=== PATIENT | female | born 1990 | race Caucasian/White ===

== ENCOUNTER 2019-07-01 16:41 | Inpatient (IN) | payer SELFPAY ==
[2019-07-01 17:07] LABS: #Basophils 0.1 thou/uL (0.0-0.2); #Eosinphils 0.3 thou/uL (0.0-0.7); #Lymphocytes 5.3 thou/uL (1.20-3.40); #Monocytes 1.3 thou/uL (0.11-0.59); #Neutrophils 9.2 thou/uL (1.40-6.50); %Basophils 0.8 % (0.0-1.0); %Eosinophils 1.7 % (0.0-10.0); %Lymphocytes 32.6 % (21.0-51.0); %Monocytes 7.9 % (0.0-10.0); Hemoglobin 13.3 g/dL (12.0-16.0); Mean Corpuscular Hemoglobin 29.4 pg (27.0-31.0); Mean Corpuscular Volume 91.6 fL (78.0-98.0); Mean Platelet Volume 6.9 fL (7.4-10.4); Platelet Count 315 thou/uL (130-400); RBC Distribution Width 12.3 % (11.5-14.5); Red Blood Cell (RBC) Count 4.53 mill/uL (4.20-5.40); White Blood Cell (WBC) Count 16.2 thou/uL (4.8-10.8)
[2019-07-01] MEDS ORDERED: Norepinephrine 8 MG/0.9% NS 250 ML ONE (17:20)
[2019-07-01 17:27] LABS: Prothrombin Time 13.3 SEC (12.0-14.7)
[2019-07-01 17:28] LABS: ALT (SGPT) Less than 7 U/L (8-55); AST (SGOT) 18 U/L (5-34); Albumin 3.8 g/dL (3.5-5.0); Alkaline Phosphatase 76 U/L (40-110); Anion Gap 21 mmol/L (10-20); BUN (Urea Nitrogen) 11 mg/dL (7.0-18.7); Bilirubin, Total 0.4 mg/dL (0.2-1.2); Calc. Creatinine Clearance 0 mL/min (70-130); Calcium 8.7 mg/dL (7.8-10.44); Carbon Dioxide 16 mmol/L (22-29); Chloride 104 mmol/L (98-107); Estimated GFR-MDRD 49; Globulin 3.3 g/dL (2.4-3.5); Glucose 283 mg/dL (70-105); Potassium 3.2 mmol/L (3.5-5.1); Protein, Total 7.1 g/dL (6.0-8.3); Sodium 138 mmol/L (136-145)
--- NOTE | 2019-07-01 17:29 | CT ---
CTA Angio Chest W WO Con History: Syncope Comparison: Radiograph same day Findings: Large joint clot burden from the distal right and left main pulmonary arteries. The right p ulmonary arterial thrombus extends into all segmental branches of the right lung with relative hypovolemia of the entire right lung with partial collapse the vessels. The left side thrombus extends into the lower lobe vessels. There is also some involvement within the lingula. Relative sparing left upper lobe. Small infarct anterior segment right lower lobe. There is bulging of the interventricular septum. There is reflux of contrast within the suprahepatic IVC and the hepatic veins. Motion artifact through the sternum. Impression: Large volume pulmonary embolism as described with near complete lung involvement with rel ative sparing of the left upper lobe. There is also evidence of right heart strain. Code: CR. Dr. Boyd notified of findings via telephone at 5:18 PM
[2019-07-01 17:30] LABS: BHCG - Serum Negative (NEGATIVE); Pregs Control Background? CLEAR/WHITE (CLR/WHITE); Pregs Control Bar Appear? YES (CONTROL BAR)
[2019-07-01 17:34] LABS: Base Excess-Venous -16.2 mmol/L (-2.0 to 3.0); Bicarbonate (HCO3v) 10.7 mmol/L (22.0-28.0); CO2 Tension (PvCO2) 28.7 mmHg (40.0-50.0); Calcium, Ionized 0.88 mmol/L (See Comments:); Chloride 104 mmol/L (98-107); Glucose 330 mg/dL (70-105); Hemoglobin - Calc 14.6 g/dL (12.0-16.0); Lactate 9.67 mmol/L (0.50-2.20); Potassium 3.3 mmol/L (3.5-5.1); Sodium 134 mmol/L (138-145); T. Carbon Dioxide 11.6 mmol/L (22.0-28.0); vO2 Saturation-calc 90.1 % (60.0-85.0)
[2019-07-01 17:39] LABS: Acetaminophen Less than 6.0 mcg/mL (10.0-30.0); Alcohol Less than 10 mg/dL (Less than 10); CK (CPK) 72 U/L (29-168); Magnesium 2.2 mg/dL (1.6-2.6); Salicylate Less than 8.0 mg/dL (15.0-30.0)
[2019-07-01 17:53] LABS: CKMB 0.8 ng/mL (0-6.6)
[2019-07-01 17:55] LABS: Amphetamine Not Detected (NotDetected); Barbiturates Screen Not Detected (NotDetected); Benzodiazepine Screen Not Detected (NotDetected); Cocaine Metabolite Screen Not Detected (NotDetected); Medtox Reader # READER 4; Methadone Not Detected (NotDetected); Methamphetamine Not Detected (NotDetected); Opiate Screen Not Detected (NotDetected); Oxycodone Screen Not Detected (NotDetected); Phencyclidine (PCP) Not Detected (NotDetected); THC/Cannabinoid Screen Not Detected (NotDetected); Tricyclic Screen Not Detected (NotDetected)
[2019-07-01 17:56] LABS: Medtox Control Line Valid? VALID (VALID)
--- NOTE | 2019-07-01 18:29 | CT ---
CT ABDOMEN AND PELVIS PERFORMED WITH CONTRAST ENHANCEMENT: 07/01/19 HISTORY: Chest pain and shortness of breath. Abdominal pain. COMPARISON: CT angio chest done earlier. The density along the major fissure within the right lower lobe is possibly related to pulmonary infa rct given the patient's extensive pulmonary embolus. There is an abnormal appearance to the liver and gallbladder which is probably on the basis of patien t's pulmonary embolus and hepatic dysfunction related to right heart strain. Some of the more periphe ral portal vessels are somewhat attenuated in appearance. Gallbladder wall is markedly edematous raza uring as much as 1.5 cm in thickness. This is all probably secondary to hepatic congestion. There is some minimal linear density seen within the portal vein in the very proximal superior mesenteric vein . I cannot exclude this is a small foci of thrombus. It may represent a mixing artifact that given th e extensive pulmonary embolus does raise the possibility that the patient has some type of hypercoagu lable state. The spleen is unremarkable. Right and left adrenal glands and right and left kidneys are normal in size and appearance. Appendix appears unremarkable. No significant periaortic or mesenteric adenopathy. CT OF PELVIS PERFORMED WITH CONTRAST ENHANCEMENT: There is no evidence of adenopathy, mass or free fluid. Endometrium is enhancing but this probably is related to the stage of menstrual cycle and arterial phase of this exam. IMPRESSION: Evidence for some hepatic congestion. There is also marked gallbladder wall edema change but this als o could be secondary to hepatic congestion related to patient's right heart dysfunction due to the un derlying pulmonary embolus rather than being related to an actual acute cholecystitis. POS: [facility]
[2019-07-01] MEDS ORDERED: Ondansetron PF 4 MG/2 ML Vial IVP PRN (19:09)
[2019-07-01] MEDS ORDERED: Acetaminophen 325 MG TAB PO PRN (19:09)
[2019-07-01] MEDS ORDERED: Acetaminophen 650 MG Suppository PR PRN (19:09)
[2019-07-01] MEDS ORDERED: Senokot S 8.6-50 MG TAB PO PRN (19:09)
[2019-07-01] MEDS ORDERED: Ondansetron ODT 4 MG TAB PO PRN (19:09)
[2019-07-01] MEDS ORDERED: Guaifenesin DM 100-10/5 ML UDCUP PO PRN (19:09)
[2019-07-01] MEDS ORDERED: Sodium Chloride 0.9% 1,000 ML IV SCH (19:15)
[2019-07-01] MEDS ORDERED: Lorazepam 2 MG/ML VIAL ONE ×2 (20:07→21:22)
--- NOTE | 2019-07-01 20:41 | HP ---
PRIMARY CARE PHYSICIAN: Orlando Newman MD CHIEF COMPLAINT: Shortness of breath and chest pain. HISTORY OF PRESENT ILLNESS: This is a 28-year-old female with a past medical history of asthma and recent pleurisy. Over the last 2 to 3 months, she has had multiple episodes of right-sided pleurisy developed in the right back and then radiates to the right front. Has been treated multiple times with some improvement, but then it would come back. She also had some coughing associated with this more recently. She has been tried on some indomethacin, which she did not do well with, and later on with a steroid course, which seemed to help, but then her symptoms started getting worse again afterward. She developed some right-sided sharp chest pain last night, had slept on her left side, then this morning, started a little short of breath. Then at her work, she became severely short of breath, so she was brought into the emergency room. In emergency room, she was found to be severely tachycardic and hypoxic. She was breathing very fast in the 30s per minute, and her blood pressure was in the 90s systolic. She had an emergency CT angio, which showed very large bilateral pulmonary embolism, it is worse on the right with near-complete lung involvement and some sparing of the left upper lobe. There was evidence of right heart strain as well on the CT angio. The emergency room doctor did call Dr. Stevens. He recommended tPA followed by [facility] 2 hours after finishing the tPA. The patient did have some blood pressure down to 80 systolic and was going to be started on some Levophed if needed, but the pressures came up to the 100 systolic on fluids. The patient just arrived to the ICU, and her tPA just finished. She has had a mild improvement in her shortness of breath, but she is still needing facemask oxygen, and her heart rate is still in the 160s. She is breathing a little bit easier. I did discuss her case with Dr. Stevens, and he is concerned about the lack of response, and states that she needs transfer to a facility that can do a catheter-guided tPA. REVIEW OF SYSTEMS: CONSTITUTIONAL: No fevers. No chills. EYES: No double vision or blurred vision. ENT: No congestion, drainage, or sore throat. CARDIOVASCULAR: See HPI. PULMONARY: See HPI. GASTROINTESTINAL: No abdominal pain. No nausea or vomiting. No diarrhea or constipation. GENITOURINARY: No dysuria or hematuria. MUSCULOSKELETAL: No muscle aches or joint pain. SKIN: No rashes or lesions noted. NEUROLOGIC: No numbness, tingling, or focal weakness. PAST MEDICAL HISTORY: 1. Asthma. 2. The patient denies any history of GI bleed or other bleeding disorder. PAST SURGICAL HISTORY: None. SOCIAL HISTORY: No tobacco or alcohol use. She does have some marijuana use. The patient is single. She is accompanied by her boyfriend. Her father, Anne Waller, nurse here at [place], and she is a full code, and her father would be her medical decision maker if she were incapacitated. FAMILY HISTORY: Mother has a history of a DVT. ALLERGIES: NO KNOWN DRUG ALLERGIES. CURRENT MEDICATIONS: NuvaRing. PHYSICAL EXAMINATION: VITAL SIGNS: Blood pressure 100/60, pulse 160, oxygen saturation 100% on facemask, respiratory rate currently 25 per minute. GENERAL: This is a well-developed, well-nourished white female, who appears in just mild respiratory distress, much more comfortable than she was earlier, but still with some increased work of breathing. HEENT: Pupils are equal, round, and reactive to light. Oropharynx with dry mucous membranes. NECK: Supple. No lymphadenopathy. No thyroid nodules or enlargement. HEART: Regular rhythm. Tachycardic. No murmurs. Good peripheral pulses. LUNGS: Clear to auscultation bilaterally. No wheezes, crackles, or rhonchi. ABDOMEN: Soft, nontender to palpation. Normoactive bowel sounds. No hepatosplenomegaly or other masses. EXTREMITIES: No clubbing, cyanosis, or edema. SKIN: No rashes or lesions noted. NEUROLOGIC: The patient moves all extremities equally. No facial droop. PSYCHIATRIC: Alert and oriented x3. Normal mood and affect. LABORATORY DATA: White blood cell count [id number], she did still have steroid course somewhat recently. Hemoglobin, hematocrit, and platelet count are all normal. Coagulation profile with normal PT and INR. D-dimer was elevated at 7. VBG showed a bicarbonate of 10, pH of 7.18, pCO2 of 28, PO2 of 71. Complete metabolic panel notable for potassium of 3.2, carbon dioxide of 16, anion gap of 21, creatinine of 1.3, which is new for her, and glucose of 283, the rest was normal. C-reactive protein was elevated. Troponin was elevated at 0.044. Normal CK-MB. Her serum was negative. Her TSH was normal. Brain natriuretic peptide was normal. Lipase was normal. Toxicology screen was negative. CT of the chest as per HPI. CT of the abdomen and pelvis with contrast shows evidence for some hepatic congestion and marked gallbladder wall edema changes likely secondary to hepatic congestion. This is all likely due to her pulmonary embolism. ASSESSMENT: 1. Large bilateral pulmonary embolism with right heart dysfunction. The patient has not improved much with the tPA and still having evidence of significant heart strain. We will arrange for a helicopter transport to referral center, where she can get the catheter-directed tPA. I have talked to Dr. Stevens about the patient and discussed her tachycardia. He recommends this is a reactive due to the strain of the pulmonary embolism and recommends against giving anything to try and explore down at this point. He does recommend that if there is a significant delay in the transfer, to try another dose of tPA this time run over 4 hours. 2. Gastrointestinal prophylaxis. The patient is on Pepcid twice a day. CODE STATUS: The patient is a full code. Should she be incapacitated, her father will be her medical decision maker. His name is Anne Waller. Job ID: [id number]
[2019-07-01] MEDS ORDERED: Famotidine/PF 20 mg/2ml Vial SLOW IVP SCH (21:00)
[2019-07-01 22:47] VITALS: BMI 21.4
[2019-07-01 22:58] VITALS: TEMP 97.7
--- NOTE | 2019-07-02 07:34 | RAD ---
XR Chest 1 View Portable History: Chest pain. Difficulty breathing Comparison: None. Findings: The lungs are clear. No pneumothorax or effusion. Cardiac silhouette and mediastinal contou rs are within normal limits. Impression: No acute intrathoracic abnormality.
--- NOTE | 2019-07-02 07:44 | DIS ---
DATE OF ADMISSION: 07/01/2019 DATE OF DISCHARGE: 07/01/2019 See admission history and physical from earlier in this evening. The patient is being transferred to [facility] due to persistent right heart strain from bilateral large pulmonary embolism refractory to systemic tPA. I did talk to Dr. Roca the reducing salon attendant at [facility], and he did accept transfer of the patient. We will send her by air ambulance. Currently, her heart rate has been stable in the 160s. She was becoming anxious, was breathing a little bit faster, but her oxygen saturations have been stable at 100%, and so we gave her a little bit of IV Ativan and that seems to have helped her anxiety and her blood pressure has been stable around 100 systolic. The patient is still critically ill and needs urgent transfer for higher level of care and for catheter directed thrombolysis. Job ID: [id number]
--- NOTE | 2019-07-03 15:40 | EKG ---
Test Reason : Blood Pressure : / mmHG Vent. Rate : 169 BPM Atrial Rate : 169 BPM P-R Int : 100 ms QRS Dur : 074 ms QT Int : 224 ms P-R-T Axes : 067 088 -44 degrees QTc Int : 375 ms Sinus tachycardia with short MO Marked ST abnormality, possible inferior subendocardial injury Abnormal ECG Confirmed by AVINASH OCAMPO M.D. ([id number]), newspaper editor managing SHERLY TAYLOR ([id number]) on 07/03/2019 3:39:53 PM Referred By: Confirmed By:AVINASH OCAMPO M.D.
== END 2019-07-01 22:31 | disposition short-term general hospital (02) | DRG 176 ==
LOC: ERS 16:41 → CCU 17:14
PROVIDERS: ADMIT Emergency Medicine; ATTEND Emergency Medicine
DX: I26.99 Other pulmonary embolism without acute cor pulmonale (principal); J45.909 Unspecified asthma, uncomplicated; Z84.89 Family history of other specified conditions
CPT/HCPCS: 71045; 71275; 74177; 80053; 80306; 80307; 82330; 82550; 82553; 82803; 83605; 83690; 83735; 83880; 84443; 84484; 84703; 85025; 85379; 85610; 86140; 93005; J2060; J2997